=== PATIENT | female | born 1980 | race Two or more races ===

== ENCOUNTER 2022-05-28 04:46 | Emergency (ER) | payer OTHER ==
[~2022-05-28] VITALS: Ht 165.1 cm; Wt 68.0 kg
== END 2022-05-28 06:48 | disposition home or self-care (01) ==
LOC: ER 04:46
DX: S01.81XA Laceration without foreign body of other part of head, initial encounter (principal); W19.XXXA Unspecified fall, initial encounter; Y93.9 Activity, unspecified; Y92.9 Unspecified place or not applicable